=== PATIENT | female | born 1980 | race Caucasian/White ===

== ENCOUNTER 2016-11-08 14:57 | Emergency (ER) | payer BC ==
[~2016-11-08] VITALS: Ht 170.2 cm; Wt 111.8 kg
[2016-11-08] MEDS ORDERED: ONDANSETRON 2 MG/ML (Z0FRAN) 2 ML VIAL IV ONE (15:25)
[2016-11-08] MEDS ORDERED: HYDROmorphone 1 MG/ML (DILAUDID) SYRINGE IV ONE ×3 (15:25→17:40)
[2016-11-08] MEDS ORDERED: KETOROLAC 30 MG/ML (TORADOL) 1 ML VIAL IV ONE (15:25)
[2016-11-08 15:36] LABS: BASOPHILS % (AUTO) 0 % (0-2); EOSINOPHILS # (AUTO) 0.2 10^3uL; EOSINOPHILS % (AUTO) 3 % (0-4); LYMPHOCYTES # (AUTO) 2.7 X10^3; MEAN CORPUSCULAR HEMOGLOBIN 29.8 PG (26.0-34.0); MEAN CORPUSCULAR VOLUME 88 FL (80-100); MONOCYTES # (AUTO) 0.7 X10^3; MONOCYTES % (AUTO) 8 % (3-11); NEUTROPHILS # (AUTO) 4.4 X10^3; NEUTROPHILS % (AUTO) 55 % (51-67); PLATELET COUNT 288 10^3uL (150-450); WHITE BLOOD COUNT 8.07 10^3uL (4.0-11.0)
[2016-11-08 15:43] LABS: ALBUMIN 4.5 g/dL (3.4-5.0); ANION GAP 14.6 MEQ/L (3-15); CALCULATED IONIZED CALCIUM 3.9 mg/dL (3.8-4.6); TOTAL PROTEIN 8.1 g/dL (6.4-8.5)
[2016-11-08 15:44] LABS: BILIRUBIN,URINE Negative (Negative); CLARITY,URINE Clear; COLOR,URINE Yellow; GLUCOSE, URINE (UA) Negative (Negative); LEUKOCYTE ESTERASE ,URINE Negative (Negative); PH,URINE 7.5 (5.0 - 8.0); UROBILINOGEN,URINE 0.2 mg/dL (0.2-1.0)
[2016-11-08 16:00] LABS: RBC,URINE 0-2 /HPF; URINE CENTRIFUGED VOLUME 12 mL
[2016-11-08 16:09] LABS: SPERM,URINE Rare /HPF
[2016-11-08] MEDS ORDERED: HYDROcodone/APAP 5 MG/325 MG (NORCO) TAB PO ONE (17:45)
[2016-11-08 18:16] VITALS: BP 133/74
== END 2016-11-08 18:25 | disposition home or self-care (01) ==
LOC: ED 15:02
DX: N20.0 Calculus of kidney (principal); N23 Unspecified renal colic
CPT/HCPCS: 36415; 74176; 80053; 81003; 81015; 84703; 85025; 86140; 96361; 96374; 96375; 96376; 99283; J1170; J1885; J2405; J7030

== ENCOUNTER 2016-11-09 02:43 | Emergency (ER) | payer BC ==
[~2016-11-09] VITALS: Ht 170.2 cm; Wt 113.8 kg
[2016-11-09] MEDS ORDERED: SODIUM CHLORIDE FLUSH 3 ML SYR IV PRN (03:05)
[2016-11-09] MEDS ORDERED: SODIUM CHLORIDE FLUSH 10 ML SYR IV PRN (03:05)
[2016-11-09] MEDS ORDERED: ONDANSETRON 2 MG/ML (Z0FRAN) 2 ML VIAL IV ONE (03:05)
[2016-11-09] MEDS ORDERED: morphine INJ 10 MG/ML 1 ML VIAL IV SCH (03:15)
[2016-11-09] MEDS: morphine INJ 10 MG/ML 1 ML VIAL IV SCH ×2 (03:22→04:38)
[2016-11-09] MEDS ORDERED: HYDROcodone/APAP 7.5 MG/325 MG (NORCO) TABLET PO ONE (03:30)
[2016-11-09 03:49] LABS: BILIRUBIN,URINE Negative (Negative); GLUCOSE, URINE (UA) Negative (Negative); LEUKOCYTE ESTERASE, URINE Negative (Negative); PH,URINE 6.5 (5.0 - 8.0); UROBILINOGEN,URINE 0.2 mg/dL (0.2-1.0)
[2016-11-09 03:49] LABS: BASOPHILS % (AUTO) 0 % (0-2); EOSINOPHILS # (AUTO) 0.1 10^3uL; EOSINOPHILS % (AUTO) 1 % (0-4); LYMPHOCYTES # (AUTO) 3.1 X10^3; MEAN CORPUSCULAR VOLUME 88 FL (80-100); MEAN PLATELET VOLUME 11.2 FL (6.0-9.5); MONOCYTES # (AUTO) 0.7 X10^3; MONOCYTES % (AUTO) 7 % (3-11); NEUTROPHILS # (AUTO) 6.2 X10^3; NEUTROPHILS % (AUTO) 61 % (51-67); PLATELET COUNT 285 10^3uL (150-450); WHITE BLOOD COUNT 10.21 10^3uL (4.0-11.0)
[2016-11-09 04:00] LABS: CLARITY,URINE Slightly Cloudy; COLOR,URINE Dark Yellow; URINE CENTRIFUGED VOLUME 12 mL
--- NOTE | 2016-11-09 04:10 | NUR ---
RESTING IN BED ON SIDE SAYS SHE DOES FEEL BETTER. IS NOT ROCKING BACK AND FORTH AT THIS TIME
--- NOTE | 2016-11-09 05:00 | NUR ---
DR MUNOZ ON PHONE WITH HOSPITALIST ON [place] ABOUT POSSIBLE TRANSFER
[2016-11-09] MEDS ORDERED: SODIUM CHLORIDE 250 ML IV SCH (05:25)
[2016-11-09 05:48] VITALS: BP 116/75
== END 2016-11-09 05:52 | disposition short-term general hospital (02) ==
LOC: ED 02:45
DX: N23 Unspecified renal colic (principal); R10.31 Right lower quadrant pain
CPT/HCPCS: 36415; 81003; 81015; 85025; 96361; 96374; 96375; 96376; 99283; J2270; J2405; J7030

== ENCOUNTER → 2016-11-09 | Outpatient (CLI) | payer BC | LOC: EMS 05:45 | PROVIDERS: ATTEND Emergency Medicine | DX: N23 Unspecified renal colic (principal); M54.5 Low back pain ==